=== PATIENT | female | born 2000 | race Hispanic/Latino ===

== ENCOUNTER 2019-06-22 20:56 | Emergency (ER) | payer OTHER, SELFPAY ==
[2019-06-22] MEDS ORDERED: ACETAMINOPHEN 325 MG TAB ONE (21:41)
[2019-06-22 22:18] LABS: BASOPHILS % (AUTO) 0.2 % (0.0-5.0); EOSINOPHILS % (AUTO) 1.9 % (0.0-8.0); HEMATOCRIT 39.7 % (36-48); LYMPHOCYTES % (AUTO) 6.9 % (21.0-51.0); MEAN CORPUSCULAR HEMOGLOBIN 28.9 pg (27.0-33.0); MEAN CORPUSCULAR HGB CONC 33.2 g/dL (32.0-36.0); MEAN CORPUSCULAR VOLUME 87.1 fL (80-100); MONOCYTES % (AUTO) 6.3 % (3.0-13.0); NEUTROPHILS % (AUTO) 84.5 % (40.0-77.0); PLATELET COUNT (AUTO) 201 K/uL (130-400); RED BLOOD CELL COUNT(AUTO) 4.56 MIL/uL (4.00-5.50); RED CELL DISTRIBUTION WIDTH 12.3 % (11.0-15.5); WHITE BLOOD COUNT (AUTO) 6.4 K/uL (4.8-10.8)
[2019-06-22] MEDS ORDERED: SODIUM CHLORIDE 0.9% 1000ML 1,000 ML IV ONE (22:18)
[2019-06-22] MEDS ORDERED: ONDANSETRON HCL 4 MG/2 ML VIAL ONE (22:19)
[2019-06-22 22:27] LABS: CREATININE 0.8 mg/dL (0.5-1.5); POTASSIUM 3.3 mmol/L (3.5-5.1)
== END 2019-06-22 23:35 | disposition home or self-care (01) ==
LOC: EDH 20:56
DX: J09.X2 Influenza due to identified novel influenza A virus with other respiratory manifestations (principal); E86.9 Volume depletion, unspecified
CPT/HCPCS: 36415; 71046; 80048; 85025; 96361; 96374; 99284; J2405; J7030

== ENCOUNTER 2021-12-28 18:32 | Emergency (ER) | payer OTHER ==
[~2021-12-28] VITALS: Ht 157.5 cm; Wt 72.6 kg
[2021-12-28 18:38] VITALS: BP 119/71
[2021-12-28] MEDS ORDERED: LIDOCAINE HCL 2% VISCOUS 15 ML UDCUP ONE (20:34)
[2021-12-28] MEDS ORDERED: LIDOCAINE HCL 2% VISCOUS 15 ML UDCUP TP ONE (21:00)
[2021-12-28] MEDS ORDERED: BACI30OI6 TP (21:12)
[2021-12-28] MEDS ORDERED: IBUP-2070 PO (21:12)
[2021-12-28] MEDS ORDERED: BACITRACIN 1 EACH PACKET TP ONE (21:14)
== END 2021-12-28 21:35 | disposition home or self-care (01) ==
LOC: EDH 18:32
DX: S61.102A Unspecified open wound of left thumb with damage to nail, initial encounter (principal); Z79.1 Long term (current) use of non-steroidal anti-inflammatories (NSAID); X58.XXXA Exposure to other specified factors, initial encounter; Y93.89 Activity, other specified; Y92.89 Other specified places as the place of occurrence of the external cause; Y99.8 Other external cause status
CPT/HCPCS: 11730; 73140